=== PATIENT | female | born 1975 | race African-American/Black ===

== ENCOUNTER 2021-08-16 13:35 | Emergency (ER) | payer SELFPAY ==
[~2021-08-16] VITALS: Ht 170.2 cm; Wt 102.0 kg
[2021-08-16] MEDS ORDERED: ACETAMINOPHEN 325MG TABLET PO ONE (14:00)
[2021-08-16] MEDS ORDERED: BENZONATATE 100MG CAPSULE PO ONE (14:00)
[2021-08-16] MEDS ORDERED: BENZ-16 MT (15:15)
[2021-08-16 15:39] VITALS: BP 138/56
== END 2021-08-16 15:41 | disposition home or self-care (01) ==
LOC: ER 13:35
DX: U07.1 COVID-19 (principal); E11.9 Type 2 diabetes mellitus without complications
CPT/HCPCS: 71045; 99283